=== PATIENT | female | born 1935 | race Caucasian/White ===

== ENCOUNTER 2018-08-27 09:29 | Outpatient (REF) | payer MEDICARE, BC, SELFPAY ==
[2018-08-27 20:52] LABS: HCT 35.9 % (36.0-46.0); HGB 11.6 g/dL (12.0-15.5); Mean Corp. HGB Concentration 32.3 g/dL (32.0-36.0); Mean Corpuscular Hemoglobin 29.1 pg (27.0-33.0); Mean Platelet Volume 10.7 fL (8.0-11.0); Platelet Count 207 x1000/uL (130-400); RBC 3.99 m/cumm (4.00-5.20); RBC Distribution Width 12.9 % (11.7-14.6); White Blood Cell Count 4.83 k/cumm (4.4-10.8)
[2018-08-27 21:04] LABS: Anion Gap 7.1 mmol/L (3-11); BUN 29 mg/dL (7-18); CO2 31.9 mmol/L (21.0-32.0); CREATININE 1.05 mg/dL (0.55-1.02); Calcium 9.5 mg/dL (8.5-10.1); Chloride 101 mmol/L (98-107); Glucose 105 mg/dL (70-100); Potassium 3.8 mmol/L (3.5-5.1); Sodium 140 mmol/L (136-145)
== END 2018-08-27 09:49 ==
LOC: NCHCN 09:29
PROVIDERS: PCP Specialist/Technologist Athletic Trainer; Visit Provider Specialist/Technologist Athletic Trainer
DX: R73.09 Other abnormal glucose (principal); I10 Essential (primary) hypertension
CPT/HCPCS: 80048; 85027

== ENCOUNTER 2018-09-10 08:10 | Day surgery (SDC) | payer MEDICARE, BC, SELFPAY ==
--- NOTE | 2018-09-08 09:30 | POEE_ITS ---
History of Present Illness Chief Complaint: Progressive decreased vision, left eye Narrative: Patient is an 83-year-old lady who has previously undergone cataract surgery in the right eye in 2017. She presents with complaints of progressive decreased vision in her left eye at both distance and near. She has significant difficulty with glare at night. On examination she was noted to have significant nuclear and cortical cataract of the left eye with visual acuity of 20/400. The option of cataract surgery was offered to the patient and she wished to proceed. NOTE: The Chief Complaint, HPI, Past Medical History, Past Surgical History, Family History, Social History, Medications, and complete Ophthalmic Exam with detailed Assessment and Plan have already been documented in the patient's outpatient ophthalmic record and are not covered again in detail here. 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 (Acute) Nuclear sclerotic cataract of left eye (Acute) Hypertension Postmenopausal bleeding Social History Smoking/Tobacco Use Status: Former Tobacco Use Surgical History Extraction of cataract Meds Home Medications Medication Instructions Recorded Confirmed Type aspirin [Aspir-Low] 81 mg PO DAILY tab-cap 12/23/16 09/06/18 History atorvastatin 20 mg PO HS tab-cap 12/23/16 09/06/18 History hydrochlorothiazide 25 mg PO DAILY tab-cap 12/23/16 09/06/18 History losartan 25 mg PO DAILY tab-cap 12/23/16 09/06/18 History metformin 500 mg PO BID 09/06/18 09/06/18 History Allergies Allergy/AdvReac Type Severity Reaction Status Date / Time No Known Allergies Allergy Unverified 01/30/17 09:42 Exam OCULAR EXAM:: Visual acuity at distance: Uncorrected 20/70 right eye, 20/400 left eye Pupils: Pupils equal, round, and reactive without afferent pupillary defect IOP: 17 OD 19 OS Extraocular Motility: Normal Pertinent Slit Lamp Findings: Significant for a well-positioned PCIOL OD with clear posterior capsule. 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 The anterior chamber depth is intermediate and the pupil dilates to 5.5 mm. A 2 -3+ yellow-brown nuclear cataract with 1+ cortical cataract is present OS. Dilated Funduscopic Examination: Disc cupping is 0.4 OU with lucius-papillary atrophy and good color. The retinal vessels are normal. There are some drusen in both macula. Peripheral retina and vitreous and normal OU. BRIGHTNESS ACUITY TESTING (BAT):: Off left eye 20/400 Low: 20/200 Medium: 20/200 High: 20/400 Assessment and Plan (1) Nuclear sclerotic cataract of left eye: Current visit: No Status: Acute Assessment: Visually significant cataract, left eye. Plan: Cataract extraction with intraocular lens implantation, left eye (2) Cortical cataract of left eye: Current visit: No Status: Acute Assessment: Visually significant cataract, left eye. Plan: Cataract extraction with intraocular lens implantation, left eye Note: NOTE:: The details of the planned surgery, including the risks, indications, limitations,expectations,outcome and possible complications were explained to the patient. The patient understands the complications including, but not limited to: infection, hemorrhage, posterior dislocation of the lens or nuclear fragments which may require the intervention of a vitreoretinal surgeon, possible loss of the eye, or from anesthetic complications. The patient has been made aware of the option of not having surgery, that vision following surgery may not be equal to that prior to surgery, and that the planned surgery may not achieve the intended results. Following this discussion, which the patient appeared to understand, the patient wishes to proceed with cataract surgery with lens implantation of the affected eye to improve and maximize vision.
[2018-09-10 08:34] VITALS: BP 159/77; PULSE 89; RESP 16; TEMP 36.8; O2SAT 98
[2018-09-10] MEDS: Lidocaine 2% Jelly 6 ML SYR (09:29)
[2018-09-10] MEDS: Trypan Blue 0.06% 0.5 ML SYR (09:34)
[2018-09-10] MEDS: Balanced Salt Soln.-PLUS 500 ML BAG (09:34)
[2018-09-10] MEDS: Povidone-Iodine Ophth 30 ML BTL (09:37)
--- NOTE | 2018-09-10 10:00 | W.PM.DSUDISC ---
Discharge Plan Discharge Details Reason For Visit: CATARACT OS Attending Provider: Drew Arreaga Primary Care Provider: Faustino Frias Home Meds and New Rx's Prescriptions: No Action atorvastatin 20 MG tablet 20 mg PO HS RF: 0 aspirin [Aspir-Low] 81 MG tablet,delayed release (DR/EC) 81 mg PO DAILY RF: 0 losartan 25 MG tablet 25 mg PO DAILY RF: 0 hydrochlorothiazide 12.5 MG capsule 25 mg PO DAILY RF: 0 metformin 500 mg Tablet Extended Release 24 Hr 500 mg PO BID RF: 0 Discharge Instructions Stand Alone Forms: Post-op Topical Cataract, Sebastien Ching (DSU) DS: Diagnosis Discharge Diagnosis (1) Nuclear sclerotic cataract of left eye: Status: Resolved (2) Cortical cataract of left eye: Status: Resolved
--- NOTE | 2018-09-10 10:04 | ROE_ITS ---
Date of service: 09/10/18 Time of Service: 10:02 Operative Note DATE OF PROCEDURE: 09/10/18 PRE-OP DIAGNOSIS: Cataract, left eye, with poor red reflex POST-OP DIAGNOSIS: same PROCEDURE: Cataract extraction using phacoemulsification with intraocular lens implant, left eye, using capsular staining with Vision Blue SURGEON: Drew Arreaga ANESTHESIA: MAC (with local sub-tenon's anesthetic injection) COMPLICATIONS: None Patient was transported to: same day Patient's condition: stable Implants: Bartolo [employer] Bartolo / [employer] Tecnis [id number] Indications: Progressive decreased vision due to cataract, left eye, with poor red reflex Procedure Description: CATARACT SURGERY OPERATIVE REPORT PREOPERATIVE DIAGNOSIS: 1. Dense nuclear/cortical cataract, left eye 2. Poor red reflex secondary to #1 POSTOPERATIVE DIAGNOSIS: Same OPERATION: 1. Cataract extraction using phacoemulsification with posterior chamber intraocular lens implant, left eye. 2. Capsular staining with Vision Blue IOL: IOL [employer] Putter Up [employer] Ticket Preparer/Model: Bartolo & Bartolo / LOI Tecnis [id number] IOL Power: +25.00 diopters IOL Serial Number: [id number] Optic Diameter: 6.0 mm Haptic/Overall Diameter: 13.0 mm PHACO INFO: Leo Centurion Vision System with OZil and Active Fluidics Cumulative Dispersed Energy (CDE): 15.54 seconds SURGEON: Drew Arreaga MD, ASHLEY ANESTHESIA: Monitored [facility] (MAC), with local sub-tenon's anesthetic infiltration COMPLICATIONS: None SPECIMENS: None INDICATIONS FOR PROCEDURE: The patient is an 83-year-old lady who has previously undergone cataract surgery in 2017 her right eye. She has now developed a dense nuclear and cortical cataract in the left eye with visual acuity of 2400. She is moderately myopic in the left eye. She is myopic in the right eye status post cataract surgery. She wishes to remain mildly myopic in the left eye. The option of cataract surgery was offered to the patient and she felt she was symptomatic enough that she wished to proceed. PROCEDURE: The correct surgical eye was identified and marked as the left eye and the pupil was dilated in the preoperative area using mydriatics, cycloplegics, and NSAIDS (except in aspirin allergic patients). The dilated pupil size was 6.0 mm. Oral sedation was administered in the form of an Imprimis MKO Melt (midazolam 3mg/ketamine 25mg/ondansetron 2mg). The patient was brought to the operating room where cardiopulmonary monitoring was instituted and surgical time-out was performed, confirming the correct operative eye and IOL power. Topical anesthesia was administered and ophthalmic povidone-iodine 5% was instilled into the conjunctival fornices. Lidocaine gel was applied to the cornea and the lucius-ocular area was prepped with Betadine 10% solution and draped in the usual sterile fashion for intraocular surgery. Steri-strips were used to cover the lashes and lid margins and an adhesive eye drape was placed. Care was taken to isolate the lashes and lid margins under the Steri-strips and adhesive eye drape. A lid speculum was placed between the lids of the operative eye and the Cameron-Sukh operating microscope was maneuvered into position. Stephanie scissors were then used to make a conjunctival buttonhole approximately 6mm posterior to the limbus in the inferonasal quadrant. Blunt dissection was carried out to expose bare sclera, and a blunt-tipped sub-tenon? s anesthesia cannula was introduced and passed posteriorly along the globe where non-preserved plain lidocaine was injected into posterior sub-Tenon?s space. A sideport knife was used to make a paracentesis port at the 12:00 position. Air was injected into the anterior chamber, followed by Vision Blue, which was painted over the anterior capsule and then irrigated out using BSS. The anterior chamber was filled with Healon GV. A 2.4mm keratome knife was used to create a half-thickness groove at the limbus and then to construct a three-plane near-clear corneal tunnel extending 2.0mm into clear cornea at the 3 :00 position. A flap was raised on the anterior capsule and capsulorhexis forceps were used to complete a continuous curvilinear capsulorhexis of 5.0mm. Balanced salt solution was then used to perform cortical cleaving hydrodissection and nuclear hydrodelineation until the lens could be freely rotated within the capsular bag. The lens nucleus was then disassembled and removed within the capsular bag and iris plane using phacoemulsification. Residual cortical material was removed using the 45-degree angled silicone I/A tip with 0.3mm port. The posterior capsule was carefully polished to remove as much residual lens epithelial cells as safely possible. The capsular bag was then inflated and the anterior chamber deepened with viscoelastic. The lens implant described above was inserted into the capsular bag using the LOI Crow Injector. A Kuglen hook was used to dial the IOL into position. Residual viscoelastic was then removed first from posterior to the IOL, then from the anterior chamber using the I/A handpiece. The lens implant was noted to center nicely within the capsular bag. The incisions were stromally hydrated , and the anterior chamber was reformed using BSS. Then 0.4cc of moxifloxacin 1.5mg/ml were injected into the capsular bag and anterior chamber. The incisions were checked with a Weck spear and found to be secure. Several drops of ophthalmic povidone-iodine 5% were then applied to the eye followed by two drops of Imprimis combination moxifloxacin/dexamethasone solution. The drapes were removed and a clear plastic protective eye shield was placed over the eye. The patient was then returned to [facility] Day Surgery in stable condition.
[2018-09-10 10:25] VITALS: BP 125/51; PULSE 75; RESP 16; TEMP 36.4; O2SAT 93
== END 2018-09-10 10:40 | disposition home or self-care (01) ==
LOC: SUR 08:11
PROVIDERS: PCP Specialist/Technologist Athletic Trainer; Visit Provider Ophthalmology
PROC: (CPT 66982; principal; 2018-09-10 10:30)
DX: H25.812 Combined forms of age-related cataract, left eye (principal); H35.89 Other specified retinal disorders; E11.9 Type 2 diabetes mellitus without complications; Z79.84 Long term (current) use of oral hypoglycemic drugs; I10 Essential (primary) hypertension
CPT/HCPCS: 66982; V2632

== ENCOUNTER 2019-08-29 10:48 | Outpatient (REF) | payer MEDICARE, BC, SELFPAY ==
[2019-08-29 22:08] LABS: HCT 34.1 % (36.0-46.0); HGB 11.2 g/dL (12.0-15.5); Mean Corp. HGB Concentration 32.8 g/dL (32.0-36.0); Mean Corpuscular Hemoglobin 29.6 pg (27.0-33.0); Mean Platelet Volume 10.4 fL (8.0-11.0); Platelet Count 236 x1000/uL (130-400); RBC 3.79 m/cumm (4.00-5.20); RBC Distribution Width 12.9 % (11.7-14.6); White Blood Cell Count 4.61 k/cumm (4.4-10.8)
[2019-08-29 22:35] LABS: BUN 15 mg/dL (7-18); CREATININE 0.94 mg/dL (0.55-1.02); Calcium 9.1 mg/dL (8.5-10.1); Calculated LDL 68 mg/dL; Chloride 103 mmol/L (98-107); Cholesterol 152 mg/dL (50-200); Estimated GFR 57.01 (mL/min/1.73m2); Glucose 102 mg/dL (70-100); HDL Cholesterol 46 mg/dL (40-60); Potassium 4.2 mmol/L (3.5-5.1); Sodium 143 mmol/L (136-145); Triglyceride 193 mg/dL (30-150)
== END 2019-08-29 11:08 ==
LOC: NCHCN 10:48
PROVIDERS: PCP Specialist/Technologist Athletic Trainer; Visit Provider Specialist/Technologist Athletic Trainer
DX: E78.5 Hyperlipidemia, unspecified (principal); I10 Essential (primary) hypertension; R73.09 Other abnormal glucose
CPT/HCPCS: 80048; 80061; 85027

== ENCOUNTER 2020-04-15 12:47 | Outpatient (RCR) | payer MEDICARE, BC, SELFPAY ==
[2020-04-15 13:04] LABS: Abs Immature Grans 0.02 k/cumm (0.0-0.09); Absolute Basophil Count 0.04 k/cumm (0.0-0.2); Absolute Eosinophil Count 0.11 k/cumm (0.0-0.7); Absolute Lymphocyte Count 0.83 k/cumm (1.2-3.4); Absolute Monocyte Count 0.43 k/cumm (0.11-0.7); Absolute Neutrophil Count 3.57 k/cumm (1.2-6.7); Basophils % 0.8; Eosinophils % 2.2; HCT 35.2 % (36.0-46.0); HGB 11.8 g/dL (12.0-15.5); Immature Grans % 0.4 %; Lymphocytes % 16.6; Mean Corp. HGB Concentration 33.5 g/dL (32.0-36.0); Mean Corpuscular Hemoglobin 29.6 pg (27.0-33.0); Mean Corpuscular Volume 88.4 fL (80-95); Mean Platelet Volume 9.2 fL (8.0-11.0); Monocytes % 8.6; Neutrophils % 71.4; Platelet Count 226 x1000/uL (130-400); RBC 3.98 m/cumm (4.00-5.20)
[2020-04-15 13:23] LABS: ALT 24 U/L (14-59); AST 13 U/L (15-37); Albumin 3.6 g/dL (3.4-5.0); Alkaline Phosphatase 63 U/L (46-116); Anion Gap 6.8 mmol/L (3-11); BUN 26 mg/dL (7-18); Bilirubin, Total 0.4 mg/dL (0.2-1.0); CO2 31.2 mmol/L (21.0-32.0); CREATININE 1.04 mg/dL (0.55-1.02); Calcium 9.2 mg/dL (8.5-10.1); Chloride 102 mmol/L (98-107); Estimated GFR 50.61 (mL/min/1.73m2); Glucose 143 mg/dL (74-106); Potassium 3.3 mmol/L (3.5-5.1); Sodium 140 mmol/L (136-145); Total Protein 7.6 g/dL (6.4-8.2)
== END 2020-04-26 23:59 | disposition home or self-care (01) ==
LOC: INF 12:47
PROVIDERS: PCP Specialist/Technologist Athletic Trainer; Visit Provider Nurse Practitioner
DX: C54.1 Malignant neoplasm of endometrium (principal)
CPT/HCPCS: 36415; 80053; 85025

== ENCOUNTER 2020-10-05 03:20 | Outpatient (CLI) | payer MEDICARE, BC, SELFPAY ==
[2020-10-05 13:04] LABS: Abs Immature Grans 0.02 10^3/uL (0.0-0.06); Absolute Basophil Count 0.05 10^3/uL (0.0-0.2); Absolute Eosinophil Count 0.09 10^3/uL (0.0-0.7); Absolute Lymphocyte Count 1.18 10^3/uL (1.2-3.4); Absolute Monocyte Count 0.49 10^3/uL (0.1-0.8); Absolute Neutrophil Count 3.26 10^3/uL (1.2-6.7); Eosinophils % 1.8; HGB 11.2 g/dL (11.2-15.7); Immature Grans % 0.4; Lymphocytes % 23.2; MCH 29.4 pg (27.0-33.0); MCHC 32.9 % (32.0-36.0); MCV 89.2 fL (80-95); MPV 9.5 fL (8.0-11.0); Monocytes % 9.6; Nucleated RBC 0 %; Platelet Count 219 10^3/uL (130-400); RBC 3.81 10^6/uL (3.93-5.22); RDW 12.8 % (11.7-14.6); RDW-SD 41.8 fL; WBC 5.09 10^3/uL (4.4-10.8)
[2020-10-05 13:49] LABS: ALT 24 U/L (14-59); AST 19 U/L (15-37); Albumin 3.8 g/dL (3.4-5.0); Alkaline Phosphatase 65 U/L (46-116); Anion Gap 9.4 mmol/L (3-11); BUN 22 mg/dL (7-18); Bilirubin, Total 0.5 mg/dL (0.2-1.0); CO2 30.6 mmol/L (21.0-32.0); CREATININE 0.95 mg/dL (0.55-1.02); Calcium 9.3 mg/dL (8.5-10.1); Chloride 101 mmol/L (98-107); Estimated GFR 56.18 (mL/min/1.73m2); Glucose 92 mg/dL (74-106); Potassium 3.4 mmol/L (3.5-5.1); Sodium 141 mmol/L (136-145); Total Protein 7.3 g/dL (6.4-8.2)
== END 2020-10-05 03:40 ==
PROVIDERS: PCP Specialist/Technologist Athletic Trainer; Visit Provider Nurse Practitioner Family
DX: C54.1 Malignant neoplasm of endometrium (principal)
CPT/HCPCS: 36415; 80053; 85025

== ENCOUNTER 2021-01-04 17:18 | Outpatient (REF) | payer MEDICARE, BC, SELFPAY ==
[2021-01-04 20:39] LABS: Anion Gap 9.8 mmol/L (3-11); BUN 27 mg/dL (7-18); CO2 30.2 mmol/L (21.0-32.0); CREATININE 0.9 mg/dL (0.55-1.02); Calcium 9.4 mg/dL (8.5-10.1); Calculated LDL 93 mg/dL (<100); Chloride 101 mmol/L (98-107); Cholesterol 177 mg/dL (<200); Glucose 107 mg/dL (74-106); HDL Cholesterol 47 mg/dL (40-60); Potassium 3.8 mmol/L (3.5-5.1); Sodium 141 mmol/L (136-145); Triglyceride 185 mg/dL (<150)
== END 2021-01-04 17:19 | disposition home or self-care (01) ==
LOC: NCHCN 17:18
PROVIDERS: PCP Specialist/Technologist Athletic Trainer; Visit Provider Nurse Practitioner Family
DX: E78.5 Hyperlipidemia, unspecified (principal); I10 Essential (primary) hypertension
CPT/HCPCS: 80048; 80061

== ENCOUNTER 2021-12-04 13:01 | Emergency (ER) | payer MEDICARE, BC, SELFPAY ==
[2021-12-04 13:07] VITALS: BP 181/61; PULSE 82; RESP 16; TEMP 36.3; O2SAT 96
--- NOTE | 2021-12-04 13:30 | DI.CT_ITS ---
Exam(s) CT HEAD WO EXAM: CT HEAD WO CLINICAL HISTORY: fall - hit head. TECHNIQUE: Imaging Protocol: Axial computed tomography images with coronal and sagittal reformatted images were created and reviewed COMPARISON: No exams were available for comparison FINDINGS: Ventricles and Extra axial spaces: Normal in size and morphology for the patient's age. Hemorrhage: None. Cerebral parenchyma: Minimal white matter changes, otherwise normal. Midline shift: None. Brainstem/Cerebellum: Normal. Calvarium: Normal. Visualized Paranasal sinuses/Mastoids: Clear. Soft Tissues: Unremarkable. IMPRESSION: No acute intracranial process. RADIATION DOSE DELIVERED: 654.12mGy.cm Total DLP DATA REPOSITORY: All CT scans at this facility are submitted to the National Radiology Data Registry (NRDR) Dose Index Registry (DIR) with the [employer] (ACR). RADIATION OPTIMIZATION: All CT scans at this facility use at least one of these dose optimization te chniques: automated exposure control; mA and/or kV adjustment per patient size (includes targeted exa ms where dose is matched to clinical indication); or iterative reconstruction.
--- NOTE | 2021-12-04 13:30 | DI.RAD_ITS ---
Exam(s) XR WRIST LT COMPLETE EXAM: XR WRIST LT COMPLETE CLINICAL HISTORY: fall injury. TECHNIQUE: 2D digital imaging was performed. COMPARISON: No exams were available for comparison FINDINGS: BONES: Comminuted intra-articular fracture of the distal radius with some impaction as well as dorsal angulation. There is mild separation at the articular surface. There is a question of a nondisplac ed ulnar styloid fracture however there are multiple on skin folds coursing through this area. Degen erative changes are seen at the 1st carpal metacarpal joint and interphalangeal joint of the thumb. No bony destructive lesion is seen. JOINTS: The carpal bones are normally aligned. SOFT TISSUE: Swelling around wrist. IMPRESSION: Comminuted intra-articular fracture of the distal radius. Question of nondisplaced ulnar styloid fra cture. DATA REPOSITORY: RADIATION DOSE DELIVERED:
--- NOTE | 2021-12-04 14:14 | DI.VRAD_ITS ---
PROCEDURE INFORMATION: Exam: CT Head Without Contrast Exam date and time: 12/04/2021 1:33 PM Age: 86 years old Clinical indication: Other: Fall TECHNIQUE: Imaging protocol: Computed tomography of the head without contrast. Radiation optimization: All CT scans at this facility use at least one of these dose optimization techniques: automated exposure control; mA and/or kV adjustment per patient size (includes targeted exams where dose is matched to clinical indication); or iterative reconstruction. COMPARISON: No relevant prior studies available. FINDINGS: Brain: Cerebral volume loss noted. Scattered areas of decreased attenuation in the deep periventricular white matter consistent with small vessel ischemic change. No evidence for acute intracranial hemorrhage. Cerebral ventricles: No ventriculomegaly. Paranasal sinuses: Visualized sinuses are unremarkable. No fluid levels. Mastoid air cells: Visualized mastoid air cells are well aerated. Bones/joints: Unremarkable. No acute fracture. Soft tissues: Unremarkable. IMPRESSION: Senescent changes noted. No acute intracranial abnormality. Dictated and Authenticated by: Lary Mancia MD. Ordering:EUNICE Castellanos MD
--- NOTE | 2021-12-04 14:16 | DI.VRAD_ITS ---
PROCEDURE INFORMATION: Exam: XR Left Wrist Exam date and time: 12/04/2021 1:33 PM Age: 86 years old Clinical indication: Pain; Wrist; Left; Patient HX: Fall today TECHNIQUE: Imaging protocol: XR Left wrist. Views: 3 or more views. COMPARISON: No relevant prior studies available. FINDINGS: Bones/joints: There is a comminuted distal radial shaft fracture with mild impaction. There is mild dorsal offset. There appears to be a nondisplaced ulnar styloid fracture. Soft tissues: There is significant, diffuse distal carpal soft tissue swelling. IMPRESSION: Distal radial fracture with comminution, impaction and mild dorsal offset. Nondisplaced ulnar styloid fracture associated. Dictated and Authenticated by: Lary Mancia MD. Ordering:EUNICE Castellanos MD
--- NOTE | 2021-12-04 14:18 | W.ED.GENAD ---
Discharge Plan Disposition Patient Disposition: HOME Condition: Stable Discharge Details Clinical Impression: Closed fracture distal radius and ulna Primary Care Provider: Patti Arnett V ED Provider: Emanuel Olmstead Home Meds and New Rx's Prescriptions: Continued atorvastatin 20 MG tablet 20 mg PO HS RF: 0 losartan 25 MG tablet 25 mg PO DAILY RF: 0 hydrochlorothiazide 12.5 MG capsule 25 mg PO DAILY RF: 0 metformin 500 mg Tablet Extended Release 24 Hr 500 mg PO BID RF: 0 Discharge Instructions Instructions: Wrist Fracture in Adults (ED) Additional Instructions: Head CT is unremarkable but your x-ray revealed a distal radial and ulnar fracture wear splint until reevaluation with Ortho . Rest, elevate, cool compresses, [id number] Tylenol as directed. Please watch for new or worsening symptoms and return to the ER for any concerns. I have placed you on the orthopedic list to help expedite this process. Lastly, I do recommend contacting their office first thing Monday to set up your outpatient appointment. Medical Decision Making 86-year-old female, not anticoagulated, presents for mechanical slip and fall injuring her left wrist. Plan is to obtain x-ray of her left wrist for further evaluation of bony involvement. She did strike her head, LOC, headache, neck pain, visual changes, any other injuries. Given her age and head injury will obtain CT of the head as well. Patient and family are comfortable with this plan. CT of head unremarkable acute process X-ray reveals distal radial and ulnar fracture. Discussed CT and x-ray findings with patient and family. Plan is to place into a left Ortho-Glass wrist splint. We'll place her on the Ortho list to help expedite outpatient follow-up. They have no additional questions or concerns. We discussed the importance of resting, icing, elevation, [id number] Tylenol. Standard discharge and return precautions provided This documentation was generated using [employer] HR[employer] system, please disregard any oddities of phrase or misspellings. Medical Records Medical records reviewed: Yes I reviewed the patient's medical records. Imaging Data Radiologic Study: Attestation: I personally reviewed and interpreted this imaging study as follows: Imaging: X-Ray Radiologist's impression: PROCEDURE INFORMATION: Exam: CT Head Without Contrast Exam date and time: 12/04/2021 1:33 PM Age: 86 years old Clinical indication: Other: Fall TECHNIQUE: Imaging protocol: Computed tomography of the head without contrast. Radiation optimization: All CT scans at this facility use at least one of these dose optimization techniques: automated exposure control; mA and/or kV adjustment per patient size (includes targeted exams where dose is matched to clinical indication); or iterative reconstruction. COMPARISON: No relevant prior studies available. FINDINGS: Brain: Cerebral volume loss noted. Scattered areas of decreased attenuation in the deep periventricular white matter consistent with small vessel ischemic change. No evidence for acute intracranial hemorrhage. Cerebral ventricles: No ventriculomegaly. Paranasal sinuses: Visualized sinuses are unremarkable. No fluid levels. Mastoid air cells: Visualized mastoid air cells are well aerated. Bones/joints: Unremarkable. No acute fracture. Soft tissues: Unremarkable. IMPRESSION: Senescent changes noted. No acute intracranial abnormality. Radiologic Study #2: Attestation: I personally reviewed and interpreted this imaging study as follows: Imaging: X-Ray Radiologist's impression: PROCEDURE INFORMATION: Exam: XR Left Wrist Exam date and time: 12/04/2021 1:33 PM Age: 86 years old Clinical indication: Pain; Wrist; Left; Patient HX: Fall today TECHNIQUE: Imaging protocol: XR Left wrist. Views: 3 or more views. COMPARISON: No relevant prior studies available. FINDINGS: Bones/joints: There is a comminuted distal radial shaft fracture with mild impaction. There is mild dorsal offset. There appears to be a nondisplaced ulnar styloid fracture. Soft tissues: There is significant, diffuse distal carpal soft tissue swelling. IMPRESSION: Distal radial fracture with comminution, impaction and mild dorsal offset. Nondisplaced ulnar styloid fracture associated. HPI General Mode of arrival: ambulatory. Date/Time Provider Initiated Documentation: 12/04/21 13:19. Limitations to Documentation: no limitations. Information obtained by: patient and family. HPI Narrative: This is an 86-year-old female, past medical history of hypertension, not anticoagulated, reports approximately 2 hours ago mis-stepping, falling down onto a bench and then onto the ground. She reports that she did hit her head but denies any LOC, headache, neck pain, visual changes, nausea, vomiting, numbness or tingling. She states that she injured her wrist, moderate pain at rest worse with movement, denies numbness, tingling, she has not taken any medications for her symptoms. She is right-hand dominant. Related Data Home Medications Medication Instructions Recorded Confirmed atorvastatin 20 mg PO HS tab-cap 12/23/16 12/04/21 hydrochlorothiazide 25 mg PO DAILY tab-cap 12/23/16 12/04/21 losartan 25 mg PO DAILY tab-cap 12/23/16 12/04/21 metformin 500 mg PO BID 09/06/18 12/04/21 Allergies Allergy/AdvReac Type Severity Reaction Status Date / Time No Known Allergies Allergy Unverified 12/04/21 13:12 General Stated Complaint: Orthopedic JONATHAN: 4 Review of Systems Constitutional Constitutional: Denies headache(s) Eyes Eyes: Denies change in vision ENT Ears, Nose, Mouth, and Throat: Denies headache(s) and Denies neck pain Musculoskeletal Musculoskeletal: Reports arthralgias, Denies neck pain, Denies numbness, Reports stiffness and Denies tingling Neurologic Neurologic: Denies headache(s), Denies numbness and Denies tingling PFSH All Active Problems Closed fracture distal radius and ulna (Acute) S/P cataract surgery (Chronic 09/10/18) Corneal endothelial dystrophy (Chronic) Medical History Hypertension Postmenopausal bleeding Pt noted to have endometrial mass on pelvic [facility] Surgical History Extraction of cataract Social History Smoking/Tobacco Use Status: Former Tobacco Use Smoking risk assessment performed?: Yes Alcohol Intake: never Drug use: Never Exam Const General: cooperative, healthy appearing, comfortable and no acute distress Orientation: alert, awake and oriented x3 HENMT Head: normal to inspection, normocephalic and atraumatic Eyes General: appearance normal, both eyes and all related structures Conjunctivae: conjunctivae normal Neck Neck: normal visual inspection, full ROM, trachea midline, supple and nontender Resp Effort & Inspection: normal respiratory effort and able to speak in complete sentences Cardio Rate: regular rate Rhythm: regular rhythm Skin General skin exam: no rashes or lesions noted Neuro General: patient alert, patient awake, moves all extremities and no focal motor deficits Cognition: normal cognition Speech: speech normal Gait: normal gait Motor: muscle tone normal throughout Sensory Exam: no sensory deficits noted Extrem General: capillary refill normal Other: Left wrist with diffuse discomfort, swelling, slightly worse on the radial aspect. Normal radial pulse and capillary refill. Neuro, vascular, tendon intact. Patient with full range of motion but movement does cause the pain to become worse. Skin is intact Psych Appearance: grossly normal Mental Status: mental status grossly normal Course Vital Signs Vital signs: Vital Signs Temperature 36.3 C L 12/04/21 13:07 Pulse 82 12/04/21 13:07 Respiratory Rate 16 12/04/21 13:07 Blood Pressure 181/61 H 12/04/21 13:07 Pulse Oximetry 96 12/04/21 13:07 Temperature 36.3 C L 12/04/21 13:07 Temperature Source Skin 12/04/21 13:07 Pulse 82 12/04/21 13:07 Respiratory Rate 16 12/04/21 13:07 Respiratory Effort 12/04/21 13:07 Blood Pressure 181/61 H 12/04/21 13:07 Blood Pressure Position Sitting 12/04/21 13:07 Pulse Oximetry 96 12/04/21 13:07 Pain Level 7 12/04/21 13:16 Procedures Orthopedic Splinting/Casting Injury #1: Side: left Upper Extremity Injury Location: wrist Upper Extremity Immobilizer: wrist splint (Ortho-Glass, mild volar pressure applied)
[2021-12-04 14:51] VITALS: BP 178/68; PULSE 78; TEMP 35.7; O2SAT 96
== END 2021-12-04 15:05 | disposition home or self-care (01) ==
PROVIDERS: Emergency Provider Physician Assistant; PCP Family Medicine
DX: S52.592A Other fractures of lower end of left radius, initial encounter for closed fracture (principal); S09.8XXA Other specified injuries of head, initial encounter; S52.692A Other fracture of lower end of left ulna, initial encounter for closed fracture; W01.0XXA Fall on same level from slipping, tripping and stumbling without subsequent striking against object, initial encounter
CPT/HCPCS: 29125; 99284; 70450; 73110; 99283

== ENCOUNTER 2021-12-07 08:13 | Outpatient (CLI) | payer MEDICARE, BC, SELFPAY ==
--- NOTE | 2021-12-07 07:45 | DI.RAD_ITS ---
Exam(s) XR WRIST LT LIMITED EXAM: XR WRIST LT LIMITED CLINICAL HISTORY: left wrist fx TECHNIQUE: COMPARISON: CR,XR XR WRIST LT COMPLETE from 12/04/2021 FINDINGS: Two views were obtained. The wrist is in a splint. Alignment of previously described fracture of di stal radius and ulnar styloid appears centrally unchanged comparison with prior examination of Judy y 8. IMPRESSION: RADIATION DOSE DELIVERED: Total DLP
== END 2021-12-07 08:14 | disposition home or self-care (01) ==
LOC: DIORS 08:13
PROVIDERS: PCP Family Medicine; Referring Provider Family Medicine; Visit Provider Student in an Organized Health Care Education/Training Program
DX: S52.502A Unspecified fracture of the lower end of left radius, initial encounter for closed fracture; S52.602A Unspecified fracture of lower end of left ulna, initial encounter for closed fracture; W19.XXXA Unspecified fall, initial encounter
CPT/HCPCS: 29085; 99204; 99214; Q4010; 73100

== ENCOUNTER 2021-12-15 13:07 | Outpatient (CLI) | payer MEDICARE, BC, SELFPAY ==
--- NOTE | 2021-12-15 12:45 | DI.RAD_ITS ---
Exam(s) XR WRIST LT LIMITED EXAM: XR WRIST LT LIMITED CLINICAL HISTORY: f/u wrist fractures TECHNIQUE: COMPARISON: CR XR WRIST LT LIMITED from 12/07/2021 FINDINGS: Two views were obtained. Previously described fractures of the distal radius and ulnar styloid are a gain noted, there is a question of increased impaction at the distal radial fracture site and slightl y increased dorsal angulation of the distal radial fracture fragment in comparison with the previous examination. IMPRESSION: RADIATION DOSE DELIVERED: Total DLP
== END 2021-12-15 13:08 | disposition home or self-care (01) ==
LOC: DIORS 13:08
PROVIDERS: PCP Family Medicine; Referring Provider Family Medicine; Visit Provider Physician Assistant
DX: S52.502D Unspecified fracture of the lower end of left radius, subsequent encounter for closed fracture with routine healing; S52.602D Unspecified fracture of lower end of left ulna, subsequent encounter for closed fracture with routine healing; X58.XXXD Exposure to other specified factors, subsequent encounter
CPT/HCPCS: 99213; 73100

== ENCOUNTER 2022-01-03 19:00 | Outpatient (REF) | payer MEDICARE, BC, SELFPAY ==
[2022-01-03 12:05] LABS: Anion Gap 9.1 mmol/L (3-11); BUN 22 mg/dL (7-18); CO2 29.9 mmol/L (21.0-32.0); CREATININE 1.1 mg/dL (0.55-1.02); Calcium 9.2 mg/dL (8.5-10.1); Chloride 101 mmol/L (98-107); Estimated GFR 47.32 (mL/min/1.73m2); Glucose 107 mg/dL (74-106); Potassium 4.1 mmol/L (3.5-5.1); Sodium 140 mmol/L (136-145)
[2022-01-03 12:22] LABS: Hemoglobin A1C 6.4 % (<5.7)
== END 2022-01-03 19:01 | disposition home or self-care (01) ==
LOC: NCHCN 19:00
PROVIDERS: PCP Family Medicine; Visit Provider Nurse Practitioner Family
DX: I10 Essential (primary) hypertension (principal); E11.9 Type 2 diabetes mellitus without complications
CPT/HCPCS: 80048; 83036

== ENCOUNTER 2022-01-05 14:31 | Outpatient (CLI) | payer MEDICARE, BC, SELFPAY ==
--- NOTE | 2022-01-05 14:15 | DI.RAD_ITS ---
Exam(s) XR WRIST LT LIMITED EXAM: XR WRIST LT LIMITED CLINICAL HISTORY: RADIUS AND ULNA FX F/U. TECHNIQUE: 2D digital imaging was performed. COMPARISON: CR XR WRIST LT LIMITED from 12/07/2021 CR XR WRIST LT LIMITED from 12/15/2021 FINDINGS: Again noted is the previously described mildly impacted fracture site in the distal radius. Mild mikala rosalva angulation noted. Also an element positive ulnar variance is seen. No carpal dislocation eviden t IMPRESSION: DATA REPOSITORY: RADIATION DOSE DELIVERED:
== END 2022-01-05 14:32 | disposition home or self-care (01) ==
LOC: DIORS 14:32
PROVIDERS: PCP Family Medicine; Referring Provider Family Medicine; Visit Provider Student in an Organized Health Care Education/Training Program
DX: S52.592A Other fractures of lower end of left radius, initial encounter for closed fracture (principal); S52.692A Other fracture of lower end of left ulna, initial encounter for closed fracture; W01.0XXA Fall on same level from slipping, tripping and stumbling without subsequent striking against object, initial encounter
CPT/HCPCS: 99213; 73100

== ENCOUNTER 2022-02-01 14:35 | Outpatient (CLI) | payer MEDICARE, BC, SELFPAY ==
--- NOTE | 2022-02-01 14:00 | DI.RAD_ITS ---
Exam(s) XR WRIST LT LIMITED EXAM: XR WRIST LT LIMITED CLINICAL HISTORY: left radius and ulna fx f/u. TECHNIQUE: 2D digital imaging was performed. COMPARISON: CR XR WRIST LT LIMITED from 01/05/2022 FINDINGS: Again noted is a previously described impacted fracture site in the distal radius and base of the uln ar styloid. Positive ulnar variance is again noted. Dorsal angulation again noted. Scapholunate di stance is normal. IMPRESSION: Stable appearance. DATA REPOSITORY: RADIATION DOSE DELIVERED:
== END 2022-02-01 14:36 | disposition home or self-care (01) ==
LOC: DIORS 14:35
PROVIDERS: PCP Family Medicine; Referring Provider Family Medicine; Visit Provider Student in an Organized Health Care Education/Training Program
DX: S52.592D Other fractures of lower end of left radius, subsequent encounter for closed fracture with routine healing (principal); S52.692D Other fracture of lower end of left ulna, subsequent encounter for closed fracture with routine healing; W01.0XXD Fall on same level from slipping, tripping and stumbling without subsequent striking against object, subsequent encounter; S52.502D Unspecified fracture of the lower end of left radius, subsequent encounter for closed fracture with routine healing; S52.602D Unspecified fracture of lower end of left ulna, subsequent encounter for closed fracture with routine healing; X58.XXXD Exposure to other specified factors, subsequent encounter
CPT/HCPCS: 99213; 73100

== ENCOUNTER 2023-01-27 14:09 | Outpatient (REF) | payer MEDICARE, BC, SELFPAY ==
[2023-01-27 19:04] LABS: Anion Gap 8.1 mmol/L (3-11); BUN 17 mg/dL (7-18); CO2 28.9 mmol/L (21.0-32.0); CREATININE 1.1 mg/dL (0.55-1.02); Calcium 9.3 mg/dL (8.5-10.1); Chloride 105 mmol/L (98-107); Estimated GFR 49.24 (mL/min/1.73m2); Glucose 95 mg/dL (74-106); Potassium 4.4 mmol/L (3.5-5.1); Sodium 142 mmol/L (136-145)
[2023-01-27 19:12] LABS: Hemoglobin A1C 6.1 % (<5.7)
== END 2023-01-27 14:10 | disposition home or self-care (01) ==
LOC: NCHCN 14:09
PROVIDERS: PCP Family Medicine; Visit Provider Nurse Practitioner Family
DX: E11.9 Type 2 diabetes mellitus without complications (principal); I10 Essential (primary) hypertension; E87.6 Hypokalemia
CPT/HCPCS: 80048; 83036

== ENCOUNTER 2023-08-11 13:59 | Outpatient (REF) | payer MEDICARE, BC, SELFPAY ==
[2023-08-11 15:57] LABS: ALT 19 U/L (14-59); AST 17 U/L (15-37); Albumin 3.6 g/dL (3.4-5.0); Alkaline Phosphatase 73 U/L (46-116); Anion Gap 7.5 mmol/L (3-11); BUN 20 mg/dL (7-18); Bilirubin, Total 0.3 mg/dL (0.2-1.0); CO2 27.5 mmol/L (21.0-32.0); Calcium 9.3 mg/dL (8.5-10.1); Chloride 105 mmol/L (98-107); Estimated GFR 54.87 (mL/min/1.73m2); Glucose 95 mg/dL (74-106); Potassium 4.2 mmol/L (3.5-5.1); Sodium 140 mmol/L (136-145); Total Protein 7.3 g/dL (6.4-8.2)
[2023-08-11 16:01] LABS: Vitamin D 25 Total 32.2 ng/mL (30-100)
== END 2023-08-11 14:00 | disposition home or self-care (01) ==
LOC: NCHCN 13:59
PROVIDERS: PCP Family Medicine; Visit Provider Nurse Practitioner Family
DX: E11.9 Type 2 diabetes mellitus without complications (principal); E78.1 Pure hyperglyceridemia; I10 Essential (primary) hypertension; Z79.84 Long term (current) use of oral hypoglycemic drugs
CPT/HCPCS: 80053; 82306; 83036

== ENCOUNTER 2024-09-09 18:42 | Outpatient (REF) | payer MEDICARE, BC, SELFPAY ==
[2024-09-09 17:07] LABS: ESR 7 mm/hr (0-30)
[2024-09-09 17:23] LABS: ALT 23 U/L (14-59); AST 25 U/L (15-37); Albumin 3.7 g/dL (3.4-5.0); Alkaline Phosphatase 82 U/L (46-116); Anion Gap 9.5 mmol/L (3-11); BUN 25 mg/dL (7-18); Bilirubin, Total 0.48 mg/dL (0.2-1.0); C-Reactive Protein < 0.50 mg/dL (<or=0.5); CO2 26.5 mmol/L (21.0-32.0); CREATININE 1.1 mg/dL (0.55-1.02); Calcium 9.9 mg/dL (8.5-10.1); Chloride 107 mmol/L (98-107); Creatine Kinase 91 U/L (26-192); Estimated GFR 48.63 (mL/min/1.73m2); Glucose 98 mg/dL (74-106); Potassium 4.9 mmol/L (3.5-5.1); Sodium 143 mmol/L (136-145); Total Protein 7.7 g/dL (6.4-8.2)
== END 2024-09-09 18:43 | disposition home or self-care (01) ==
LOC: NCHCN 18:42
PROVIDERS: PCP Family Medicine; Visit Provider Nurse Practitioner Family
DX: E11.9 Type 2 diabetes mellitus without complications (principal)
CPT/HCPCS: 80053; 82550; 85652; 83036; 86140

== ENCOUNTER 2025-09-19 18:33 | Outpatient (REF) | payer MEDICARE, SELFPAY ==
[2025-09-19 15:42] LABS: ALT 15 U/L (14-59); AST 12 U/L (15-37); Albumin 3.8 g/dL (3.4-5.0); Alkaline Phosphatase 73 U/L (46-116); Anion Gap 6.9 mmol/L (3-11); BUN 19 mg/dL (7-18); Bilirubin, Total 0.4 mg/dL (0.2-1.0); CO2 30.1 mmol/L (21.0-32.0); Calcium 9.2 mg/dL (8.5-10.1); Chloride 104 mmol/L (98-107); Estimated GFR 61.49 (mL/min/1.73m2); Glucose 90 mg/dL (74-106); Potassium 4.4 mmol/L (3.5-5.1); Sodium 141 mmol/L (136-145); Total Protein 7.2 g/dL (6.4-8.2)
== END 2025-09-19 18:34 | disposition home or self-care (01) ==
LOC: NCHCN 18:33
PROVIDERS: PCP Family Medicine; Visit Provider Nurse Practitioner Family
DX: E78.5 Hyperlipidemia, unspecified (principal)
CPT/HCPCS: 80053; 82043; 82570